=== PATIENT | female | born 1980 | race Asian ===

== ENCOUNTER 2018-08-16 11:02 | Emergency (ER) | payer OTHER ==
[~2018-08-16] VITALS: Ht 165.1 cm; Wt 54.9 kg
[2018-08-16 11:06] VITALS: BP 115/71; Ht 165.1 cm; Wt 54.9 kg
== END 2018-08-16 12:02 | disposition home or self-care (01) ==
LOC: ED 11:02
DX: M54.6 Pain in thoracic spine (principal); V49.9XXA Car occupant (driver) (passenger) injured in unspecified traffic accident, initial encounter; W22.12XA Striking against or struck by front passenger side automobile airbag, initial encounter; Y93.I9 Activity, other involving external motion; Y92.413 State road as the place of occurrence of the external cause; Y99.8 Other external cause status

== ENCOUNTER 2019-04-05 19:49 | Emergency (ER) | payer OTHER ==
[~2019-04-05] VITALS: Ht 162.6 cm; Wt 54.0 kg
[2019-04-05 21:55] VITALS: BP 114/71
== END 2019-04-05 21:55 | disposition home or self-care (01) ==
LOC: ED 19:49
DX: K52.9 Noninfective gastroenteritis and colitis, unspecified (principal)